=== PATIENT | female | born 1975 | race Caucasian/White ===

== ENCOUNTER → 2019-03-11 | Outpatient (CLI) | payer OTHER | LOC: COL.RAD 13:46 | DX: S06.0X9A Concussion with loss of consciousness of unspecified duration, initial encounter (principal); R22.0 Localized swelling, mass and lump, head ==

== ENCOUNTER → 2019-04-18 | Outpatient (CLI) | payer OTHER | LOC: COL.RAD 12:04 | DX: M47.812 Spondylosis without myelopathy or radiculopathy, cervical region (principal); M50.20 Other cervical disc displacement, unspecified cervical region ==

== ENCOUNTER 2019-06-11 14:45 | Outpatient (RCR) | payer OTHER | END 2019-08-05 | disposition still patient (30) | LOC: MKS.ESL.PT | DX: M48.02 Spinal stenosis, cervical region (principal); S09.90XA Unspecified injury of head, initial encounter; S06.0X9A Concussion with loss of consciousness of unspecified duration, initial encounter ==

== ENCOUNTER → 2019-07-29 | Outpatient (CLI) | payer BC | LOC: MC.RAD 10:25 | DX: Z12.31 Encounter for screening mammogram for malignant neoplasm of breast (principal); Z00.00 Encounter for general adult medical examination without abnormal findings ==

== ENCOUNTER 2019-08-08 15:30 | Outpatient (RCR) | payer BC | END 2019-09-07 | disposition still patient (30) | LOC: MKS.ESL.PT | DX: M47.22 Other spondylosis with radiculopathy, cervical region (principal); M99.71 Connective tissue and disc stenosis of intervertebral foramina of cervical region; M50.10 Cervical disc disorder with radiculopathy, unspecified cervical region; M48.00 Spinal stenosis, site unspecified | CPT/HCPCS: G0283-GP ==

== ENCOUNTER 2020-11-09 09:45 | Outpatient (RCR) | payer OTHER | END 2020-11-22 | disposition home or self-care (01) | LOC: MKS.ESL.PT | DX: S46.019A Strain of muscle(s) and tendon(s) of the rotator cuff of unspecified shoulder, initial encounter (principal); M75.81 Other shoulder lesions, right shoulder ==

== ENCOUNTER 2020-12-17 08:15 | Outpatient (RCR) | payer OTHER | END 2021-02-24 | disposition home or self-care (01) | LOC: MKS.ESL.PT | DX: M75.81 Other shoulder lesions, right shoulder (principal); S46.019A Strain of muscle(s) and tendon(s) of the rotator cuff of unspecified shoulder, initial encounter ==

== ENCOUNTER 2021-07-27 09:49 | Outpatient (RCR) | payer OTHER | END 2021-07-27 09:50 | LOC: MKS.ESL.PT 09:49 | DX: S46.019A Strain of muscle(s) and tendon(s) of the rotator cuff of unspecified shoulder, initial encounter (principal); M75.81 Other shoulder lesions, right shoulder ==

== ENCOUNTER 2021-12-17 17:35 | Inpatient (IN) | payer BC ==
[2021-12-17] VITALS (53 sets, daily range): BP systolic 99–121; BP diastolic 59–73; PULSE 70–74; O2SAT 85–97
[~2021-12-17] VITALS: Ht 162.6 cm; Wt 97.7 kg
[2021-12-17 18:26] LABS: BASO # 0.1 K/mm3 (0.0-0.2); BASO % 0.6 % (0.0-2.0); EOS # 0.2 K/mm3 (0.0-0.7); EOS % 1.7 % (0.0-4.0); GRAN # 7.9 K/mm3 (1.4-6.5); GRAN % 64.9 % (42.2-75.2); HEMATOCRIT 37.4 % (37.0-47.0); HEMOGLOBIN 12.6 g/dl (12.5-16.0); LYMPH # 3.1 K/mm3 (1.2-3.4); LYMPH % 25.7 % (20.0-51.0); MEAN CELL VOLUME 94 fl (80.0-100.0); MEAN CORPUSCULAR HEMOGLOBIN 32 pg (27-31); MEAN CORPUSCULAR HGB CONC 34 g/dl (33.0-37.0); MEAN PLATELET VOLUME 9.9 fl (7.4-10.4); MONO # 0.8 K/mm3 (0.1-0.6); MONO % 6.8 % (1.7-9.3); PLATELET COUNT 403 K/mm3 (130-400); REDCELL DISTRIBUTION WIDTH-CV 12.8 % (11.5-14.5)
[2021-12-17 18:27] LABS: ALANINE AMINOTRANSFERASE 33 U/L (0-55); ALBUMIN 3.8 gm/dL (3.5-5.0); ALKALINE PHOSPHATASE 94 U/L (40-150); ANION GAP 10 mmol/L (7-16); AST,SGOT 23 U/L (5-34); BILIRUBIN,TOTAL 0.4 mg/dL (0.2-1.2); BLOOD UREA NITROGEN 10 mg/dL (7-19); CALCIUM 9.3 mg/dL (8.4-10.2); CARBON DIOXIDE 24 mmol/L (22-29); CHLORIDE 103 mmol/L (98-107); CREATININE, serum 0.83 mg/dL (0.57-1.11); GLUCOSE 107 mg/dL (70-99); POTASSIUM 4.5 mmol/L (3.5-4.5); SODIUM 137 mmol/L (136-145); TOTAL PROTEIN 7.5 gm/dL (6.2-8.1)
[2021-12-17 18:30] LABS: ACETAMINOPHEN < 1.0 ug/mL (10-30); ALCOHOL(ethanol),MEDICAL < 10 mg/dL (0-10); SALICYLATE < 5.0 mg/dL (15.0-30.0)
[2021-12-17 20:29] LABS: COLLECTION METHOD CLEAN CATCH
[2021-12-17 20:31] LABS: TRICYCLIC ANTIDEPRESS URINE POSITIVE
[2021-12-17 20:34] LABS: MUCOUS Present (NOT PRESENT); PH 6 (5-8); SQUAMOUS EPITHELIAL 0-2 /hpf (0-10); URINE APPEARANCE Clear (CLEAR/HAZY); URINE BACTERIA Rare /hpf (NONE SEEN); URINE BILIRUBIN Negative (NEGATIVE); URINE BLOOD Negative (NEGATIVE); URINE COLOR Yellow (YELLOW); URINE GLUCOSE Negative (NEGATIVE); URINE KETONE Negative (NEGATIVE); URINE LEUKOCYTE ESTERASE Negative (NEGATIVE); URINE NITRATE Negative (NEGATIVE); URINE PROTEIN(semi-quant) Negative (NEGATIVE); URINE RBC 0-2 /hpf (0-2); URINE UROBILINOGEN Negative (NEGATIVE)
[2021-12-17] MEDS ORDERED: AMITRIPTYLINE H10 M1 PO (21:08)
[2021-12-17] MEDS ORDERED: CYMBALTA 60MG60 MG PO (21:08)
[2021-12-17] MEDS ORDERED: DOXYCYCLINE 10100 MG PO (21:08)
[2021-12-17] MEDS ORDERED: METROGEL GEL45 GM TP (21:09)
[2021-12-17] MEDS ORDERED: IMITREX100 MG PO (21:09)
[2021-12-17] MEDS ORDERED: RITALIN LA60 MG PO (21:09)
[2021-12-17] MEDS ORDERED: TENORMIN 2525 MG/TAB PO (21:10)
--- NOTE | 2021-12-17 21:55 | NUR ---
Received report from MICHELLE Peterson in ED. Awaiting on patient arrival to ICU.
--- NOTE | 2021-12-17 22:56 | NUR ---
Patient arrived to unit via stretcher accompanied by ER, RN and community development technician. Patient on suicide and seizure precautions d/t intentionally OD. Patient on RA, VSS. On NS at 150mls/hr. Mcdonough catheter patent to dependent drainage with clear yellow urine. ER, RN stated patients belongings were all sent to security and patient has patients phone. Patient unable to answer questions d/t incohoherant mumbling at times and becoming restless for a few seconds during an epsiode but will stop and continue sleeping. Patient placed in donnelly gown and room prepped for suicide precautions. Will resume care of patient at this time.
--- NOTE | 2021-12-17 23:12 | NUR ---
This RN attempted to call patient Meet at [phone] to complete adult admission intake assessment d/t patient not being able to answer questions at this time. was unavailable to talk on the phone. This RN left message with patients .
--- NOTE | 2021-12-17 23:55 | NUR ---
Spoke with patients and was able to complete admission assessment intake at this time.
[2021-12-18] VITALS (778 sets, daily range): BP systolic 85–131; BP diastolic 52–75; PULSE 55–73; TEMP 97.5–98.5; O2SAT 76–100
[2021-12-18 06:31] LABS: BASO # 0.1 K/mm3 (0.0-0.2); BASO % 0.4 % (0.0-2.0); EOS # 0.1 K/mm3 (0.0-0.7); EOS % 0.9 % (0.0-4.0); GRAN # 7.3 K/mm3 (1.4-6.5); GRAN % 61.3 % (42.2-75.2); HEMOGLOBIN 10.7 g/dl (12.5-16.0); LYMPH # 3.7 K/mm3 (1.2-3.4); LYMPH % 31.3 % (20.0-51.0); MEAN CELL VOLUME 98 fl (80.0-100.0); MEAN CORPUSCULAR HEMOGLOBIN 32 pg (27-31); MEAN CORPUSCULAR HGB CONC 33 g/dl (33.0-37.0); MEAN PLATELET VOLUME 10.1 fl (7.4-10.4); MONO # 0.7 K/mm3 (0.1-0.6); MONO % 5.8 % (1.7-9.3); PLATELET COUNT 318 K/mm3 (130-400); RED BLOOD COUNT 3.36 M/mm3 (4.10-5.30); REDCELL DISTRIBUTION WIDTH-CV 12.8 % (11.5-14.5)
[2021-12-18 06:47] LABS: CALCIUM 8.5 mg/dL (8.4-10.2); CREATININE, serum 0.77 mg/dL (0.57-1.11); POTASSIUM 4.1 mmol/L (3.5-4.5)
[2021-12-18 06:48] LABS: HEMATOCRIT 32.9 % (37.0-47.0)
--- NOTE | 2021-12-18 07:33 | NUR ---
Patient did well overnight, no cardiac related issues related to OD meds reported. Poison control consulted and calls for updates. Patient on seizure precautions as well as suicide precautions.
--- NOTE | 2021-12-18 10:55 | NUR ---
Boogie spoke with , Meet via phone. Meet informed Sw that his , pt, lives at home with him and they have children. He reports that pt is indedependent on all ADLS and does not use any DME. The pt still drives. The pt PCP is Natalia Ch and gets her medications from [facility]. No DPOA-HC and is not interested at this time.No other needs stated. Sw to await further recommendations and follow up as needed. DC plan: Home, pending [place] screening when medically cleared.
--- NOTE | 2021-12-18 19:19 | NUR ---
Received report from MICHELLE Frausto. All medications verified and all questions answered. Patient resting in bed. VSS on RA. No concerns or complaints noted from patient at this time. Will resume care of patient at this time.
--- NOTE | 2021-12-18 19:43 | NUR ---
Patient ballesteros catheter removed at 1930. 7mls of saline aspirated from balloon. Balloon intact. Patient tolerated well.
--- NOTE | 2021-12-18 20:15 | NUR ---
Patient slept for the majority of the day, only getting up to eat dinner and have a coversation with this nurse as to how she ended up here. Patient is not suicidal at this time and she understands the severity of her action. She follows a therapist and we discussed the possibility of utilizing her therapist in times of crisis to help prevent further incidences such as this. Patient seems to be coping well considering the circumstances, but is understandably upset and anxious about her current situation. Patient currently resting in bed.
[2021-12-19] VITALS (506 sets, daily range): BP systolic 109–134; BP diastolic 58–78; PULSE 52–75; TEMP 97.7–99; O2SAT 66–100
--- NOTE | 2021-12-19 06:30 | NUR ---
Report received from MICHELLE Thomas; patient resting comfortably in bed after an uneventful night. Vital signs remained within normal limits and patient had no complaints and slept well.
--- NOTE | 2021-12-19 09:57 | NUR ---
Patient medically stable and psych screen requested by hospitalist. CSU contacted and provided patient's information. Clinical documentation faxed to the CSU.
--- NOTE | 2021-12-19 11:52 | NUR ---
Contact made with the CSU who confirms they have gotten the patients information and will provide it to the therapist for intake. Patient's screen will be via zoom and awaiting on zoom call information.
== END 2021-12-19 13:59 | disposition home or self-care (01) | DRG 917 ==
LOC: COL.ER 17:35 → ICU 20:31
PROVIDERS: Emergency Medicine; Nurse Practitioner Family; ADMIT Internal Medicine
DX: T43.012A Poisoning by tricyclic antidepressants, intentional self-harm, initial encounter (principal); G93.41 Metabolic encephalopathy; T44.7X2A Poisoning by beta-adrenoreceptor antagonists, intentional self-harm, initial encounter; F32.A Depression, unspecified; G43.909 Migraine, unspecified, not intractable, without status migrainosus; I95.2 Hypotension due to drugs; M79.7 Fibromyalgia; G89.29 Other chronic pain; M54.9 Dorsalgia, unspecified; E66.9 Obesity, unspecified; E16.2 Hypoglycemia, unspecified; Z20.822 Contact with and (suspected) exposure to COVID-19; Z68.36 Body mass index [BMI] 36.0-36.9, adult
CPT/HCPCS: 99223-AI; 99233-AI; 99239; A4314; J2060; J3360; J7030

== ENCOUNTER → 2022-06-06 | Outpatient (CLI) | payer BC ==
[~2022-06-06] MED LIST: AMITRIPTYLINE H10 M1 PO; CYMBALTA 60MG60 MG PO; DOXYCYCLINE 10100 MG PO; IMITREX100 MG PO; METROGEL GEL45 GM TP; RITALIN LA60 MG PO; TENORMIN 2525 MG/TAB PO
== END ==
LOC: COL.RAD 13:50
DX: M47.815 Spondylosis without myelopathy or radiculopathy, thoracolumbar region (principal); M47.816 Spondylosis without myelopathy or radiculopathy, lumbar region; M47.817 Spondylosis without myelopathy or radiculopathy, lumbosacral region; M51.25 Other intervertebral disc displacement, thoracolumbar region; M51.26 Other intervertebral disc displacement, lumbar region; M51.27 Other intervertebral disc displacement, lumbosacral region; M51.37 Other intervertebral disc degeneration, lumbosacral region; M48.061 Spinal stenosis, lumbar region without neurogenic claudication

== ENCOUNTER → 2024-03-12 | Outpatient (CLI) | payer BC ==
[~2024-03-12] MED LIST changes: +ATARAX50 MG PO; +CELEBREX 200MG200 MG PO; +CURCUMIN95% PO; +DOXYCYCLINE HY100 MG PO; +METHYLPHENIDATE PO; +MULTI VITAMINS1 TAB PO; +NATURAL MAGNES200 MG PO; +NEURONTIN300 MG/CAP PO; +NEURONTIN600 MG/TAB PO; +PHARMASSURE ZIN50 MG PO; +PROVIGIL 100MG100 MG PO; +VITAMIN C500 MG PO; +VITAMIN D31000 I1 PO; +XANAX 0.5MG0.5 MG PO; +ZYRTEC 10MG10 MG PO
== END ==
LOC: MHCPAIN 07:54
DX: M47.812 Spondylosis without myelopathy or radiculopathy, cervical region (principal); M48.02 Spinal stenosis, cervical region
CPT/HCPCS: G0463